=== PATIENT | female | born 1955 | race Two or more races ===

== ENCOUNTER 2022-07-05 08:00 | Day surgery (SDC) | payer MEDICARE, SELFPAY ==
[2022-07-04 07:53] VITALS: BMI 34.4
[2022-07-04 08:45] LABS: Basophils # (Auto) 0.1 Thou/mm3 (0.0-0.2); Basophils % (Auto) 1 % (0-2.5); Eosinophils # (Auto) 0.2 Thou/mm3 (0.0-0.5); Eosinophils % (Auto) 3 % (0-10); Hemoglobin 12.5 g/dL (12.0-16.0); Immature Granulocytes % (Auto) 0 % (0-0); Immature Granulocytes Auto 0.01 Thou/mm3 (0.00-0.00); Lymphocytes # (Auto) 1.6 Thou/mm3 (1.0-4.8); Lymphocytes % (Auto) 26 % (10-50); Mean Corpuscular HGB Conc 32.9 g/dl (31.0-37.0); Mean Corpuscular Hemoglobin 26.9 pg (25.0-35.0); Mean Corpuscular Volume 82 fL (80-100); Monocytes # (Auto) 0.4 Thou/mm3 (0.0-0.8); Monocytes % (Auto) 7 % (0-12); Neutrophils # (Auto) 3.8 Thou/mm3 (1.8-7.7); Neutrophils % (Auto) 63 % (37-80); Nucleated Red Blood Cell % 0 /100 WBC (0); Platelet Count 105 Thou/mm3 (140-440); RDW Standard Deviation 41.1 fL (36.4-46.3); Red Blood Count 4.64 Miln/mm3 (4.00-5.20)
[2022-07-04 09:00] LABS: COVID-19 (In-House Test) RNA Presumptive Negative (Negative)
[2022-07-04 09:01] LABS: Alanine Aminotransferase 20 U/L (10-49); Albumin, Serum 4.5 gm/dL (3.4-4.8); Albumin/Globulin Ratio 1.4 (1.2-2.2); Alkaline Phosphatase 83 U/L (46-116); Anion Gap 7 (7-16); Aspartate Amino Transferase 18 U/L (0-34); BUN/Creatinine Ratio 18 Ratio (12-20); Bilirubin,Total 0.7 mg/dL (0.3-1.2); Blood Urea Nitrogen 18 mg/dL (9-23); Calcium 9.6 mg/dL (8.3-10.6); Calcium (Corrected) 9.6 mg/dL (8.5-10.1); Carbon Dioxide 25.5 mMol/L (20.0-31.0); Chloride 106 mMol/L (98-107); Estimated Creatinine Clearance 65.3 mL/min (>60); Globulin 3.3 gm/dL (2.3-3.5); Glucose 193 mg/dL (74-106); Osmolality,Calculated 282 (275-295); Potassium 4.6 mMol/L (3.4-5.1); Sodium 138 mMol/L (136-145); Total Protein 7.8 gm/dL (5.7-8.2); eGFR > 60 See Note
[2022-07-04 09:02] LABS: Partial Thromboplastin Time 26.2 Seconds (22.0-36.0); Prothrombin Time 10.4 Seconds (9.0-12.2)
[2022-07-04 09:05] LABS: T4 (Thyroxine) 11.8 mcg/dL (4.5-10.9); Thyroid Stimulating Hormone 3.53 uIU/mL (0.55-4.78)
--- NOTE | 2022-07-04 14:11 | EKG_ITS ---
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
[2022-07-05] VITALS (17 sets, daily range): BP systolic 119–183; BP diastolic 59–96; PULSE 16–88; RESP 13–20; TEMP 36–36.9; O2SAT 92–100; BMI 34.2
[2022-07-05] MEDS: PREGABALIN 75 MG CAPSULE PO (08:17)
[2022-07-05] MEDS: ACETAMINOPHEN 500 MG TABLET 1000 MG PO ×2 (08:17→17:28)
[2022-07-05] MEDS: CELECOXIB 100 MG CAPSULE 200 MG PO (08:17)
--- NOTE | 2022-07-05 13:35 | SUR.PHASEI ---
1335: Pt. AAOx4, no complaint of pain or nausea, vitals stable, breathing unlabored, pt. has cap refill ledd than three seconds to bilateral feet, palpable pulses to dorsalis pedis bilaterally, dressing to right leg CDI, no active bleed noted, report received by Candis EMANUEL and Angeli ESCOBAR.
--- NOTE | 2022-07-05 13:46 | XR_ITS ---
Right knee: 2 views Indication: Postoperative. June, at 1:57 PM. There is an right knee arthroplasty. The proximal and metallic components are well aligned. Post operative soft tissue changes. Conclusion: Status post knee arthroplasty. The proximal and distal metallic components are well aligned.
--- NOTE | 2022-07-05 15:10 | SUR.PHASEII ---
1510:Gave report to Francisco EMANUEL.
--- NOTE | 2022-07-05 15:50 | SUR.PHASEII ---
1550: pt. AAOx4, no complaint of pain or nausea, vitals stable, breathing unlabored, pt. has cap refill less than three seconds to bilateral feet, palpable pulses to dorsalis pedis bilaterally, dressing to right leg CDI, no active bleed noted, sensations at L1 prior to transfer, Gave report to Francisco RN, family aware of transfer to room 357.
--- NOTE | 2022-07-05 16:01 | ESOP_ITS ---
Date of Procedure 07/05/22 Pre Op Diagnosis right knee osteoarthritis Post Op Diagnosis right knee osteoarthritis Procedure right total knee replacement Findings full thickness cartilage loss and osteophytes Procedure Description Indication: The patient is a 67 year old female who has a long history of right knee pain. X-rays show degenerative arthritis involving the knee. Over the past several years the patient has had increasing pain, progressive limitation in function. He has failed conservative measures including activity modification, physical therapy, injections, anti-inflammatories, and assistive devices. After a lengthy discussion of the risks and benefits, the patient presents now for total knee replacement. The nature and purpose of the total knee replacement, alternative method(s) of treatment, the material risks involved, and the possibility of complications were fully explained to the patient. The patient was told the most common risks and complications associated with a total knee replacement include, but are not limited to blood clots in the leg, fatal pulmonary embolism, dislocation of the prosthesis, intraoperative and postoperative fractures of the femur or tibia, infection, failure of the prosthesis or grafting materials, complications from anesthesia, reactions to blood transfusions, postoperative leg length inequality, instability of the knee replacement, nerve damage or injury, vascular injury, delayed wound healing, infections, other injury or even . In addition, there are risks associated with anesthesia given during this operation, temporary or permanent numbness on the skin lateral to the incision can be a complication unique to total knee surgery, and kneeling can be painful after knee replacement surgery. Also, the patient was told that after undergoing a total knee replacement there may still be pain or disability. The patient was informed that the success of this operation in part depends upon the mechanical devices which are going to be implanted and that these devices can fail or malfunction, and may need to be repaired or replaced and there are no guarantees as to the longevity of this device or its part and that it or its parts could fail prematurely. Finally, the patient was asked to follow completely and fully with all advice and recommended treatments, and that recovery and ultimate outcome are affected by their compliance with recommended treatment. Surgical technique: Patient was marked and consented in the pre-operative area. The patient was brou ght to the operating room and placed on the operating table in a supine position. Prior to positioning, a timeout procedure was performed between the surgeon, the anesthesiologist, and the nursing staff where the patient and the operative side were identified and confirmed. After adequate general anesthetic was obtained, the right lower extremity was prepped and draped in the usual sterile fashion. A weight based dose of Cefazolin were administered within 1 hour prior to incision. The extremity was exsanguinated with an esmarch badge and tourniquet inflated to 250mmHg. A midline incision was made. A median parapatellar arthrotomy was made. The patella was subluxed laterally. A drill hole was made in the intramedullary canal to accept the intramedullary alignment device. The distal femur was cut for 5 degrees valgus made based on preoperative templating. The rotational alignment of the planned femoral component was confirmed by comparing the anterior femoral cut to the AP [place] (Gautam's line) and the trans-epicondylar axis. The femur was sized to a size 4, and the corresponding cutting block was pinned to the distal femur. Posterior condylar, posterior chamfer, anterior condylar and anterior chamfer cuts were made being careful to avoid injury to the medial and lateral collateral ligaments. Next, attention was turned to the tibia. The extramedullary alignment guide was placed. A bone sparing perpendicular cut to the mechanical axis of tibia was performed. The tibia was sized to a size 4 and the corresponding cutting block was pinned to the proximal tibia and lug hole was drilled and the keel punch impacted. A laminar glacing machine tender was used to open up the back of the knee and remove posterior osteophytes in posterior capsule. A trial reduction was performed with a size 4 femoral component and a size 4 keeled tibial component. The patella was prepared for a size 31 button. The patella tracked centrally, and no lateral retinacular release was necessary. The trial implants were removed. The cut bone surfaces were lavaged. A size 4 right femoral component, a size 4 keeled tibial component, and a size 31 cementless Patellar button were impacted iinto position. The knee was brought out to full extension with a trial liner in a place while the cement hardened. When the cement hardened, excess cement was removed with a curved elevator. The final [4x10] mm cruciate-substituting articular insert was impacted into the tibial tray. The knee was brought out to full extension, flexed up to 120 degrees. It was stable to varus and valgus stress and appropriately balanced in flexion and extension. The wounds were copiously irrigated following deflation of tourniquet. The medial retinaculum was reapproximated with #1 vicryl and quill. The subcutaneous tissues were closed with 0 and 2-0 interrupted Vicryl. The skin was closed with 3-0 Monofilament V loc suture. A sterile dressing was applied. The patient was transferred to a bed and brought to recovery in stable condition. The patient tolerated the procedure well. There were no intraoperative complications. Sponge and needle counts were correct times 2. As the attending surgeon, I attest I was present and performed the entire operation. Grafts/Implants Size 4 CR Femur Size 4 tibia 10 mm poly 33 patella All maria del carmen tritanium cementless Anesthesia spinal Implants maria del carmen tritanium Pathology / specimen None Estimated Blood Loss 150 Condition Stable Disposition observation Surgeon Cody Alonso MD Surgical Staff Operation Date: 07/05/22 10:15 Case Staff CHIEF OPERATING OFFICER: Rubén Kay RN First Assistant: Tricia Mullins
--- NOTE | 2022-07-05 16:22 | PC.NURSE ---
Dr Alonso ordered to discontinue the regular diet and start consistent carb diet at dinner due to patient having history of diabetes, the orders were received and repeated back to the provider.
--- NOTE | 2022-07-05 16:39 | PC.NURSE ---
Informed Pharmacist Yossi to discontinue fentanyl 25 mcg IV q1h due to patient being on a med surg floor and it is not appropriate to be given on the med surg floor, MD Sy stated she would look into the order, Charge Nurse Gracy and Aligner Preston made aware of situation.
[2022-07-05] MEDS: amLODIPine BESYLATE 5 MG TABLET PO (17:28)
[2022-07-05] MEDS: SODIUM CHLORIDE 0.9% 1000 ML 1,000 ML 125 ML IV (17:28)
[2022-07-05] MEDS: metFORMIN 500 MG TABLET PO (17:28)
--- NOTE | 2022-07-05 18:19 | PC.PT ---
Patient was checked at 1730 and 1815. Patient still has no sensation below the knee. Unable to perform PT evaluation today. Will try tomorrow. RN made aware.
[2022-07-05] MEDS: oxyCODONE HCL 5 MG IR TAB 10 MG PO (19:52)
[2022-07-05] MEDS: ASPIRIN EC 81 MG TABEC PO (20:32)
[2022-07-05] MEDS: ceFAZolin/D5W 2 GM IV 2 GM/100 ML BAG IV (23:36)
[2022-07-06] MEDS: ACETAMINOPHEN 500 MG TABLET 1000 MG PO ×3 (01:02→11:53)
[2022-07-06] MEDS: oxyCODONE HCL 5 MG IR TAB PO (01:02)
[2022-07-06] MEDS: SODIUM CHLORIDE 0.9% 1000 ML 1,000 ML 125 ML IV (01:30)
[2022-07-06 04:00] VITALS: BP 155/52; PULSE 77; RESP 18; TEMP 35.7; O2SAT 96
--- NOTE | 2022-07-06 05:02 | PC.NURSE ---
2130- patient able to get out bed to bedside commode.
[2022-07-06] MEDS: LEVOTHYROXINE SODIUM 100 MCG TABLET PO (05:40)
[2022-07-06] MEDS: ceFAZolin/D5W 2 GM IV 2 GM/100 ML BAG IV (05:40)
[2022-07-06 06:05] LABS: Basophils % (Auto) 0 % (0-2.5); Eosinophils % (Auto) 0 % (0-10); Hematocrit 31.3 % (36.0-46.0); Hemoglobin 10.1 g/dL (12.0-16.0); Immature Granulocytes % (Auto) 0 % (0-0); Immature Granulocytes Auto 0.02 Thou/mm3 (0.00-0.00); Lymphocytes # (Auto) 0.5 Thou/mm3 (1.0-4.8); Lymphocytes % (Auto) 11 % (10-50); Mean Corpuscular HGB Conc 32.3 g/dl (31.0-37.0); Mean Corpuscular Hemoglobin 26.7 pg (25.0-35.0); Mean Corpuscular Volume 83 fL (80-100); Monocytes # (Auto) 0.4 Thou/mm3 (0.0-0.8); Monocytes % (Auto) 9 % (0-12); Neutrophils # (Auto) 3.6 Thou/mm3 (1.8-7.7); Neutrophils % (Auto) 79 % (37-80); Nucleated Red Blood Cell % 0 /100 WBC (0); Red Blood Count 3.78 Miln/mm3 (4.00-5.20); White Blood Count 4.5 Thou/mm3 (3.6-11.0)
[2022-07-06] MEDS: oxyCODONE HCL 5 MG IR TAB 10 MG PO ×2 (06:10→12:46)
[2022-07-06 06:12] LABS: Platelet Count 77 Thou/mm3 (140-440)
[2022-07-06 06:39] LABS: Anion Gap 10 (7-16); BUN/Creatinine Ratio 22 Ratio (12-20); Blood Urea Nitrogen 22 mg/dL (9-23); Calcium 9.1 mg/dL (8.3-10.6); Carbon Dioxide 22.1 mMol/L (20.0-31.0); Chloride 107 mMol/L (98-107); Glucose 190 mg/dL (74-106); Osmolality,Calculated 285 (275-295); Sodium 139 mMol/L (136-145); eGFR > 60 See Note
[2022-07-06 07:58] LABS: Slide Review Platelets confirmed
[2022-07-06 08:00] VITALS: BP 157/71; PULSE 73; RESP 17; TEMP 36.6; O2SAT 97
[2022-07-06] MEDS: CLOPIDOGREL BISULFATE 75 MG TABLET PO (09:04)
[2022-07-06 09:05] VITALS: BP 150/70; PULSE 70
[2022-07-06] MEDS: ASPIRIN EC 81 MG TABEC PO (09:05)
[2022-07-06] MEDS: metFORMIN 500 MG TABLET PO (09:05)
[2022-07-06] MEDS: ATORVASTATIN CALCIUM 20 MG TABLET PO (09:05)
[2022-07-06] MEDS: METOPROLOL SUCCINATE XL 25 MG TABCR PO (09:05)
[2022-07-06] MEDS: sitaGLIPtin PHOSPHATE 50 MG TABLET 100 MG PO (09:05)
[2022-07-06 09:06] VITALS: BP 150/70; PULSE 70
[2022-07-06] MEDS: PANTOPRAZOLE INJ 40 MG VIAL IV (09:06)
[2022-07-06] MEDS: amLODIPine BESYLATE 5 MG TABLET PO (09:06)
[2022-07-06 11:34] VITALS: BMI 13.0
[2022-07-06 12:00] VITALS: BP 141/78; PULSE 75; RESP 17; TEMP 36.5; O2SAT 96
--- NOTE | 2022-07-06 13:55 | PC.NURSE ---
patient discharged at 1355, discharge instructions given to patient, answered all questions. patient alert and orientated to person place time and situation. IV removed, catather intact, tape pressure and gauze applied for 5 minutes.
== END 2022-07-06 14:00 | disposition home health service (06) ==
LOC: S2EX 13:56 → S3NX 07-06 09:36
PROVIDERS: Anesthesiology; PCP Family Medicine; Referring Provider Orthopaedic Surgery Adult Reconstructive Orthopaedic Surgery; Visit Provider Orthopaedic Surgery Adult Reconstructive Orthopaedic Surgery
PROC: (CPT 27447; principal; 2022-07-05 10:15)
DX: M17.11 Unilateral primary osteoarthritis, right knee (principal); Z20.822 Contact with and (suspected) exposure to COVID-19; Z01.812 Encounter for preprocedural laboratory examination; Z01.810 Encounter for preprocedural cardiovascular examination; E11.9 Type 2 diabetes mellitus without complications; E78.5 Hyperlipidemia, unspecified; I10 Essential (primary) hypertension; Z96.652 Presence of left artificial knee joint; M25.761 Osteophyte, right knee
CPT/HCPCS: 27447; 36415; 73560; 80048; 80053; 84436; 84443; 85025; 85610; 85730; 87635; 93005; 97162; A4217; C1776; C9803; J0171; J0689; J1885; J2250; J2704; J2795; J3010; J3490; J7030; L1832; S0164; A9270; C9113; U0002

== ENCOUNTER 2024-02-12 13:19 | Outpatient (AMB) | payer MEDICARE, SELFPAY ==
[2024-02-12 13:48] VITALS: BP 141/76; PULSE 71; RESP 18; TEMP 36.4; O2SAT 97; BMI 34.1
--- NOTE | 2024-02-12 13:48 | PD.ORTHCLVIS ---
Vital signs 02/12/24 13:48 Height 1.7 m Height Method Stated Weight 98.6 kg Weight Measurement Method Standing Scale BMI 34.1 BP 141/76 H Blood Pressure Source Automatic Cuff Blood Pressure Location Right Upper Arm Position Sitting Respiration 18 Pulse 71 Pulse Source Monitor Temp 97.6 F Temp Source Temporal Artery Scan Pulse Oximetry (%) 97 Oxygen Delivery Method Room Air Med/Allergies Allergies & Medications Allergies lactase [From [employer]] Allergy (Intermediate, Verified 02/12/24 13:49) Diarrhea Medication Reconciliation atorvastatin 40 mg tablet 20 tab PO QDAY 11/14/17 [History Confirmed 02/12/24] levothyroxine 100 mcg capsule 100 mcg PO QDAY 11/14/17 [History Confirmed 02/12/24] lisinopril 20 mg tablet 30 mg PO QDAY 11/14/17 [History Confirmed 02/12/24] sitagliptin phosphate 50 mg-metformin 1,000 mg tablet (Janumet) 1 tab PO BID 11/14/17 [History Confirmed 02/12/24] amlodipine 5 mg tablet 5 mg PO QDAY #30 tabs 08/06/20 [Rx Confirmed 02/12/24] clopidogrel 75 mg tablet (Plavix) 75 mg PO QDAY #30 tabs 08/06/20 [Rx Confirmed 02/12/24] empagliflozin 25 mg tablet (Jardiance) 25 mg PO QAM 08/06/20 [History Confirmed 02/12/24] metoprolol succinate 25 mg capsule sprinkle, ext. release 24 hr 25 mg PO QDAY 07/04/22 [History Confirmed 02/12/24] aspirin 81 mg chewable tablet 81 mg PO QDAY #30 tabs 01/21/24 [Rx Confirmed 02/12/24] loperamide 2 mg tablet 2 mg PO PRN PRN Diarrhea 01/21/24 [History Confirmed 02/12/24] trazodone 50 mg tablet 50 mg PO QDAY 01/21/24 [History Confirmed 02/12/24] Subjective Visit Visit for: follow up visit Immunization / Flu Flu Vaccine in the Last 12 Months: No Flu Vaccine Exclusion Criteria: No Exclusion Criteria History of Present Illness Chief complaint: PRE-OPT Marguerite is a pleasant 68-year-old female who presents today for evaluation of her left knee. She is status post a Right total knee replacement 1 year ago and is doing well. On her left knee she reports significant pain. She was told before that it was neuropathy. I will get new x-rays of her both her knees and her back. It does appear to be radicular in nature. She is seeing a pain management doctor. The patient reports that her left knee pain hurts with stairs and is primarily in the front of her knee. She has failed conservative treatment including physical therapy in the past. She had recent stents placed in her heart. This was done 3 weeks ago. This likely delay her surgery. 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 because I am not sure he would clear her for surgery just yet Personal History Red flag PMH: other (specify) (HEART STENTS PLACED ON 01/20) Pain Pain level (0-10): 5 Pain duration: COMES AND GOES Pain location: inside (medial), outside (lateral), anterior and posterior Pain quality: sharp, dull and aching Pain timing: increases with activity Associated signs & symptoms: stiffness Ambulatory data Ambulatory device: cane Treatments Improvement with previous injections: No Improvement with PT: No Improvement with NSAIDS: n/a Review of Systems Review of Systems: All systems negative unless otherwise noted in HPI. Exam Exam Patient is in no acute distress and is cooperative with the examination today. Patient has a normal mood and affect. Breathing is nonlabored. In no respiratory distress. Bilateral extremities were evaluated and demonstrates sensation intact to light touch. Palpable pedal pulses are present. No significant edema is present. Bilateral incisions are clean dry intact. The knee feels stable to varus valgus stress elected translation for both knees. The incisions of healed to be healed. There is a lot of pain on the anterior aspect of her left knee With significant osteophytes Assessment and Plan Problem List (1) History of total bilateral knee replacement: Status: Acute Plan: Patient is a pleasant 68-year-old female who is status post right total knee replacement. Her left knee which was done by Dr. George actually hurts more. We discussed nonoperative treatment options. The left knee demonstrates an undersurface patella with significant patellar osteophytes. She she is significant anterior knee pain and we thus recommend patellar resurfacing is reasonable option. We discussed the risk benefits of surgery including infection, medical complications, persistent pain, and fracture. We are waiting to see when she can get surgery as she had recent stents placed (2) Bilateral knee pain: Status: Acute Advanced Care Planning Discussion Advance care planning discussed with:: patient Office Procedures GNS Level of Care Nursing/Assessment Patient Status: Established Patient Nursing Assessment/Reassesment: Medication Reconciliation, Update PMH in EMR and Vital Signs Coordination of Care: Complex Care and Chronic Disease 1-5, Education Complex Pt/Fam, Consent,records obtained, informed consent, 1 Ins Authorization, Results/Orders obtained and Staff clarify orders Established Patient Charge Established Patient Point Assignment: 110 Established Patient Point Charge: EP Level 3 (80-115) Past Medical History Past Medical History Have you ever been diagnosed with any of the following: Neurological Problems Cerebrovascular Accident (CVA): Yes Seizures: No Cardiology Problems Cardiac Arrhythmia: No Atrial Fibrillation: No Angina: Yes Coronary Artery Disease: Yes Hypercholesterolemia: Yes Congestive Heart Failure: No Valvular Heart Disease: No Hypertension: Yes Respiratory Problems Chronic Obstructive Pulmonary Disease (COPD): No Asthma: No Bronchitis: No Sleep Apnea: No Stomache/Intestinal Problems Irritable Bowel: Yes Genital/Urinary Problems Renal Disease: No Kidney Stones: No Reproductive Problems Previous Pregnancies: Yes (x3) Musculoskeletal Problems Arthritis: Yes (general) Gout: No Fractures: No Head,Eye,Nose,Throat Problems Cataracts: Yes (BILATERAL) Endocrine Problems Diabetes Mellitus Type 1: No Diabetes Mellitus Type 2: Yes Hyperthyroidism: Yes Blood Problems Anemia: Yes Psychologic Problems Depression: No Anxiety: No Other Problems Hospitalization: Yes (stroke) Falls: Yes Blood Transfusions: No (na) Anesthesia Reactions: No (na) MRSA: No Cancer: No Surgical History Pacemaker: Yes Additional Surgical History: HEART STENTS PLACED 01/21/24, COLONOSCOPY 01/07/24
== END 2024-02-12 14:19 | disposition home or self-care (01) ==
LOC: HODSRG 13:19
PROVIDERS: PCP Family Medicine; Referring Provider Family Medicine; Supervising Provider Orthopaedic Surgery Adult Reconstructive Orthopaedic Surgery; Visit Provider Orthopaedic Surgery Adult Reconstructive Orthopaedic Surgery
DX: M25.562 Pain in left knee (principal); M25.561 Pain in right knee; Z96.653 Presence of artificial knee joint, bilateral; I10 Essential (primary) hypertension; E78.00 Pure hypercholesterolemia, unspecified; I25.10 Atherosclerotic heart disease of native coronary artery without angina pectoris; E11.9 Type 2 diabetes mellitus without complications; Z86.73 Personal history of transient ischemic attack (TIA), and cerebral infarction without residual deficits; Z95.5 Presence of coronary angioplasty implant and graft
CPT/HCPCS: 99213; G0463

== ENCOUNTER 2024-10-02 13:23 | Outpatient (AMB) | payer MEDICARE, SELFPAY ==
[2024-10-02 13:51] VITALS: BP 158/66; PULSE 77; RESP 18; TEMP 36.6; O2SAT 77; BMI 34.6
--- NOTE | 2024-10-02 13:51 | ORTHONT_ITS ---
Vital signs 10/02/24 13:51 Height 1.7 m Height Method Stated Weight 100.045 kg Weight Measurement Method Standing Scale BMI 34.6 BP 158/66 H Blood Pressure Source Automatic Cuff Blood Pressure Location Left Upper Arm Position Sitting Respiration 18 Pulse 77 Pulse Source Monitor Temp 97.8 F Temp Source Temporal Artery Scan Pulse Oximetry (%) 77 L Oxygen Delivery Method Room Air Med/Allergies Allergies & Medications Allergies lactase (From [employer]) Allergy (Intermediate, Verified 10/02/24 13:53) Diarrhea Medication Reconciliation atorvastatin 40 mg tablet 20 tab PO QDAY 11/14/17 [History Confirmed 10/02/24] levothyroxine 100 mcg capsule 100 mcg PO QDAY 11/14/17 [History Confirmed 10/02/24] lisinopril 20 mg tablet 30 mg PO QDAY 11/14/17 [History Confirmed 10/02/24] sitagliptin phosphate 50 mg-metformin 1,000 mg tablet (Janumet) 1 tab PO BID 11/14/17 [History Confirmed 10/02/24] amlodipine 5 mg tablet 5 mg PO QDAY #30 tabs 08/06/20 [Rx Confirmed 10/02/24] clopidogrel 75 mg tablet (Plavix) 75 mg PO QDAY #30 tabs 08/06/20 [Rx Confirmed 10/02/24] empagliflozin 25 mg tablet (Jardiance) 25 mg PO QAM 08/06/20 [History Confirmed 10/02/24] metoprolol succinate 25 mg capsule sprinkle, ext. release 24 hr 25 mg PO QDAY 07/04/22 [History Confirmed 10/02/24] aspirin 81 mg chewable tablet 81 mg PO QDAY #30 tabs 01/21/24 [Rx Confirmed 10/02/24] loperamide 2 mg tablet 2 mg PO PRN PRN Diarrhea 01/21/24 [History Confirmed 10/02/24] trazodone 50 mg tablet 50 mg PO QDAY 01/21/24 [History Confirmed 10/02/24] Exam Exam Patient is in no acute distress and is cooperative with the examination today. Patient has a normal mood and affect. Breathing is nonlabored. In no respiratory distress. Bilateral extremities were evaluated and demonstrates sensation intact to light touch. Palpable pedal pulses are present. No significant edema is present. Bilateral incisions are clean dry intact. The knee feels stable to varus valgus stress elected translation for both knees. The incisions of healed to be healed. 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 Her left knee which was done by Dr. George actually hurts more. We discussed nonoperative treatment options. The left knee demonstrates an undersurface patella with significant patellar osteophytes. She she is significant anterior knee pain and we thus recommend patellar resurfacing is reasonable option. We discussed the risk benefits of surgery including infection, medical complications, persistent pain, and fracture. Recently had stents placed. She is on Plavix. She will likely need to discontinue this before proceeding (2) Bilateral knee pain: Status: Acute Advanced Care Planning Discussion Advance care planning discussed with:: patient Office Procedures GNS Level of Care Nursing/Assessment Patient Status: Established Patient Nursing Assessment/Reassesment: Medication Reconciliation, Update PMH in EMR and Vital Signs Coordination of Care: Complex Care and Chronic Disease 1-5, Education Complex Pt/Fam, Consent,records obtained, informed consent, Education Simp Pt/Fam, Lab and Imaging orders and Staff clarify orders Established Patient Charge Established Patient Point Assignment: 120 Established Patient Point Charge: EP Level 4 (120-155) MA Intake Visit Data Collection New Patient or Established: Established Patient (seen at [facility] within 3 years) Reason for Visit:: REQUEST LEFT SX Seen by Clinical Staff ONLY (RN/MA): No 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: No Primary Care Provider: DR DARNELL PCP or OBGYN visit in last 3 months: Yes Hx Now: No Do You Feel Safe at Home: Yes Authorities Contacted: N/A Questionairres Past Medical History Past Medical History Have you ever been diagnosed with any of the following: Neurological Problems Cerebrovascular Accident (CVA): Yes Transient Ischemic Attacks (TIA): No Dementia: No Alzheimer's Disease: No Parkinson's Disease: No Brain Tumor: No Meningitis: No Seizures: No Epilepsy: No Multiple Sclerosis: No Cerebral Palsy: No Amyotrophic Lateral Sclerosis (ALS/Samara Gehrig's): No Guillain-[place] Syndrome: No Spina Bifida: No Paralysis: No Peripheral Neuropathy: No Colon's Palsy: No Subdural Hematoma: No Migraine: No Head Trauma: No Spinal Cord Injury: No Traumatic Brain Injury: No Cardiology Problems Myocardial Infarction: No Cardiac Arrhythmia: No Atrial Fibrillation: No Angina: Yes Heart Murmur: No Coronary Artery Disease: Yes Atherosclerotic Heart Disease: No Peripheral Vascular Disease: No Hypercholesterolemia: Yes Aneurysm: No Congestive Heart Failure: No Congenital Heart Disease: No Valvular Heart Disease: No Rheumatic Fever: No Cardiomyopathy: No Edema: No Pericarditis: No Cellulitis: No Deep Vein Thrombosis: No Hypertension: Yes Hypotension: No Varicose Veins: No Respiratory Problems Chronic Obstructive Pulmonary Disease (COPD): No Asthma: No Bronchitis: No Emphysema: No Pneumonia: No Pulmonary Fibrosis: No Tuberculosis: No Pulmonary Embolism: No Pulmonary Edema: No Sleep Apnea: No CPAP Dependent: No Respiratory Aspiration: No Dyspnea: No Orthopnea: No Hx Cough: No Cough: No Wheezing: No Chest Deformities: No Smoking: No Smoking Cessation Counseling: No Smoking Exposure: No Tobacco Use: No Clubbing: No Exposure to Respiratory Irritants: No Intubation: No Stomache/Intestinal Problems Liver Cancer: No Hepatitis: No Cirrhosis: No Pancreatic Cancer: No Pancreatitis: No Celiac Disease: No Gall Bladder Disease: No Gastrointestinal Bleed: No Esophageal Varices: No Caceres's Esophagus: No Colitis: No Ulcerative Colitis: No Diverticulitis: No Diverticulosis: No Ulcer: No Colorectal Cancer: No Irritable Bowel: Yes Crohn's Disease: No Obstructive Bowel: No Hiatal Hernia: No Hemorrhoids: No Gastroesophageal Reflux Disease: No Polyps: No Obesity: No Genital/Urinary Problems Chronic Kidney Disease: No Renal Disease: No Kidney Stones: No Polycystic Kidney Disease: No Neurogenic Bladder: No Inguinal Hernia: No Dialysis: No Reproductive Problems Breast Cancer: No Endometriosis: No Fibroids: No Genital Herpes: No Gonorrhea: No Pelvic Inflammatory Disease: No Polycystic Ovarian Syndrome: No Previous Pregnancies: Yes (x3) Syphilis: No Uterine Prolapse: No Musculoskeletal Problems Muscular Dystrophy: No Myasthenia Gravis: No Marfan's Syndrome: No Bone Cancer: No Arthritis: Yes (general) Rheumatoid Arthritis: No Osteoporosis: No Degenerative Disk Disease: No Gout: No Scoliosis: No Carpal Tunnel Syndrome: No Fibromyalgia: No Fractures: No Degenerative Joint Disease: No Osteomyelitis: No Poliovirus: No Head,Eye,Nose,Throat Problems Cataracts: Yes (BILATERAL) Glaucoma: No Blind: No Retinal Detachment: No Macular Degeneration: No Chronic Ear Infections: No Deafness: No Eye Prosthesis: No Endocrine Problems Diabetes Mellitus Type 1: No Diabetes Mellitus Type 2: Yes Hypoglycemia: No [place]'s Syndrome: No Chris's Disease: No Hyperthyroidism: Yes Hypothyroidism: No Thyroid Cancer: No Parathyroid Disease: No Pituitary Disease: No Systemic Lupus Erythematosus: No Syndrome of Inappropriate Antidiuretic Hormone: No Adrenal Disease: No Graves' Disease: No Blood Problems Anemia: Yes Leukemia: No Hemophilia: No Thalassemia: No Sickle Cell Disease: No Clotting Problems: No Psychologic Problems Schizophrenia: No Recreational Drug Use: No Bipolar Disorder: No Depression: No Anxiety: No Behavior Problems: No Self-Mutilation: No Attention Deficit Disorder: No Attention Deficit Hyperactivity Disorder: No Depression: No Post Traumatic Stress Disorder: No Eating Disorder: No Other Problems Hospitalization: Yes (stroke) Autoimmune Disease: No Down Syndrome: No Autism: No Developmental Delay: No Cosmetic Surgery: No Shingles: No Falls: Yes Blood Transfusions: No (na) Blood Transfusion Reaction: No Anesthesia Reactions: No (na) Organ Transplant: No Chemotherapy: No Radiation Therapy: No Hyperbaric Therapy: No MRSA: No VRSA: No Vancomycin-Resistant Enterococci: No Human Immunodeficiency Virus (HIV): No Chicken Pox: No Measles: No Mumps: No Rubella ([place] Measles): No Pertussis: No Klebsiella Pneumoniae Carbapenemase Producing Bacteria: No Clostridium Difficile: No Hepatitis A: No Hepatitis B: No Hepatitis C: No Communicable Disease: No Cancer: No Cervical Cancer: No Lung Cancer: No Ovarian Cancer: No Surgical History Angioplasty: No Appendectomy: No Bariatric Surgery: No Breast Surgery: No Cancer Surgery: No Carotid Endarterectomy: No Cholecystectomy: No Colectomy: No Colostomy: No Coronary Artery Bypass Graft: No Valve Replacement: No Herniorrhaphy: No Total Hip Replacement: No Total Knee Replacement: No Hysterectomy: No Pacemaker: Yes Sinus Surgery: No Splenectomy: No TAHBSO-Total Abdominal Hysterectomy: No Thyroidectomy: No Ureter Stent: No Additional Surgical History: HEART STENTS PLACED 01/21/24, COLONOSCOPY 01/07/24 Subjective Visit Visit for: follow up visit and knee Immunization / Flu Flu Vaccine in the Last 12 Months: No Flu Vaccine Exclusion Criteria: Refused by Patient and No Exclusion Criteria History of Present Illness Chief complaint: REQUEST LEFT SX Patient is a pleasant 69-year-old female with a left total knee replacement done by Dr. George. She was found to have an undersurface patella and significant patellar arthritis. We discussed nonoperative and operative options. At this point tachycardia conservative treatment. All her pain is with stairs and in the anterior aspect of her knee. She recently had a stent placed. This was done 8 months ago Personal History BMI Counceling provided: Yes Pain Pain level (0-10): 5 Pain location: anterior Pain quality: sharp, dull and aching Ambulatory data Ambulatory device: cane Treatments Improvement with previous injections: No Improvement with PT: No Improvement with NSAIDS: no Review of Systems Review of Systems: All systems negative unless otherwise noted in HPI.
== END 2024-10-02 14:08 | disposition home or self-care (01) ==
LOC: HODSRG 13:23
PROVIDERS: PCP Family Medicine; Referring Provider Family Medicine; Supervising Provider Orthopaedic Surgery Adult Reconstructive Orthopaedic Surgery; Visit Provider Orthopaedic Surgery Adult Reconstructive Orthopaedic Surgery
DX: Z96.653 Presence of artificial knee joint, bilateral (principal); M25.561 Pain in right knee; M25.562 Pain in left knee; I10 Essential (primary) hypertension; E78.00 Pure hypercholesterolemia, unspecified; I25.10 Atherosclerotic heart disease of native coronary artery without angina pectoris; Z86.73 Personal history of transient ischemic attack (TIA), and cerebral infarction without residual deficits
CPT/HCPCS: 99214; G0463

== ENCOUNTER 2024-11-11 09:02 | Outpatient (AMB) | payer MEDICARE, SELFPAY ==
--- NOTE | 2024-11-11 09:09 | PD.ORTHCLVIS ---
Vital signs 11/11/24 09:13 Height 1.7 m Height Method Stated Weight 99.365 kg Weight Measurement Method Standing Scale BMI 34.4 BP 106/65 Blood Pressure Source Automatic Cuff Blood Pressure Location Left Upper Arm Position Sitting Respiration 16 Pulse 65 Pulse Source Monitor Temp 97.0 F Temp Source Temporal Artery Scan Pulse Oximetry (%) 92 L Oxygen Delivery Method Room Air Med/Allergies Allergies & Medications Allergies lactase (From [employer]) Allergy (Intermediate, Verified 11/11/24 09:18) Diarrhea Medication Reconciliation atorvastatin 40 mg tablet 20 tab PO QDAY 11/14/17 [History Confirmed 11/11/24] levothyroxine 100 mcg capsule 100 mcg PO QDAY 11/14/17 [History Confirmed 11/11/24] lisinopril 20 mg tablet 30 mg PO QDAY 11/14/17 [History Confirmed 11/11/24] sitagliptin phosphate 50 mg-metformin 1,000 mg tablet (Janumet) 1 tab PO BID 11/14/17 [History Confirmed 11/11/24] amlodipine 5 mg tablet 5 mg PO QDAY #30 tabs 08/06/20 [Rx Confirmed 11/11/24] clopidogrel 75 mg tablet (Plavix) 75 mg PO QDAY #30 tabs 08/06/20 [Rx Confirmed 11/11/24] empagliflozin 25 mg tablet (Jardiance) 25 mg PO QAM 08/06/20 [History Confirmed 11/11/24] metoprolol succinate 25 mg capsule sprinkle, ext. release 24 hr 25 mg PO QDAY 07/04/22 [History Confirmed 11/11/24] aspirin 81 mg chewable tablet 81 mg PO QDAY #30 tabs 01/21/24 [Rx Confirmed 11/11/24] loperamide 2 mg tablet 2 mg PO PRN PRN Diarrhea 01/21/24 [History Confirmed 11/11/24] trazodone 50 mg tablet 50 mg PO QDAY 01/21/24 [History Confirmed 11/11/24] Exam Exam Patient is in no acute distress and is cooperative with the examination today. Patient has a normal mood and affect. Breathing is nonlabored. In no respiratory distress. Bilateral extremities were evaluated and demonstrates sensation intact to light touch. Palpable pedal pulses are present. No significant edema is present. Bilateral incisions are clean dry intact. The knee feels stable to varus valgus stress elected translation for both knees. The incisions of healed to be healed. 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 Her left knee which was done by Dr. George actually hurts more. We discussed nonoperative treatment options. The left knee demonstrates an undersurface patella with significant patellar osteophytes. She she is significant anterior knee pain and we thus recommend patellar resurfacing is reasonable option. We discussed the risk benefits of surgery including infection, medical complications, persistent pain, and fracture. Recently had stents placed. She is on Plavix. She has stopped it again (2) Bilateral knee pain: Status: Acute Advanced Care Planning Discussion Advance care planning discussed with:: patient Office Procedures GNS Level of Care Nursing/Assessment Patient Status: Established Patient Nursing Assessment/Reassesment: Medication Reconciliation, Update PMH in EMR and Vital Signs Coordination of Care: Complex Care and Chronic Disease 1-5, Education Complex Pt/Fam, Consent,records obtained, informed consent, Results/Orders obtained and Staff clarify orders Established Patient Charge Established Patient Point Assignment: 95 Established Patient Point Charge: EP Level 3 (80-115) MA Intake Visit Data Collection New Patient or Established: Established Patient (seen at [facility] within 3 years) Reason for Visit:: F/U PRE OP LEFT KNEE Seen by Clinical Staff ONLY (RN/MA): No Bacon De 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: No Primary Care Provider: DR DARNELL PCP or OBGYN visit in last 3 months: Yes Hx Now: No Do You Feel Safe at Home: Yes Authorities Contacted: N/A Questionairres Past Medical History Past Medical History Have you ever been diagnosed with any of the following: Neurological Problems Cerebrovascular Accident (CVA): Yes Transient Ischemic Attacks (TIA): No Dementia: No Alzheimer's Disease: No Parkinson's Disease: No Brain Tumor: No Meningitis: No Seizures: No Epilepsy: No Multiple Sclerosis: No Cerebral Palsy: No Amyotrophic Lateral Sclerosis (ALS/Samara Gehrig's): No Guillain-[place] Syndrome: No Spina Bifida: No Paralysis: No Peripheral Neuropathy: No Colon's Palsy: No Subdural Hematoma: No Migraine: No Head Trauma: No Spinal Cord Injury: No Traumatic Brain Injury: No Cardiology Problems Myocardial Infarction: No Cardiac Arrhythmia: No Atrial Fibrillation: No Angina: Yes Heart Murmur: No Coronary Artery Disease: Yes Atherosclerotic Heart Disease: No Peripheral Vascular Disease: No Hypercholesterolemia: Yes Aneurysm: No Congestive Heart Failure: No Congenital Heart Disease: No Valvular Heart Disease: No Rheumatic Fever: No Cardiomyopathy: No Edema: No Pericarditis: No Cellulitis: No Deep Vein Thrombosis: No Hypertension: Yes Hypotension: No Varicose Veins: No Respiratory Problems Chronic Obstructive Pulmonary Disease (COPD): No Asthma: No Bronchitis: No Emphysema: No Pneumonia: No Pulmonary Fibrosis: No Tuberculosis: No Pulmonary Embolism: No Pulmonary Edema: No Sleep Apnea: No CPAP Dependent: No Respiratory Aspiration: No Dyspnea: No Orthopnea: No Hx Cough: No Cough: No Wheezing: No Chest Deformities: No Smoking: No Smoking Cessation Counseling: No Smoking Exposure: No Tobacco Use: No Clubbing: No Exposure to Respiratory Irritants: No Intubation: No Stomache/Intestinal Problems Liver Cancer: No Hepatitis: No Cirrhosis: No Pancreatic Cancer: No Pancreatitis: No Celiac Disease: No Gall Bladder Disease: No Gastrointestinal Bleed: No Esophageal Varices: No Caceres's Esophagus: No Colitis: No Ulcerative Colitis: No Diverticulitis: No Diverticulosis: No Ulcer: No Colorectal Cancer: No Irritable Bowel: Yes Crohn's Disease: No Obstructive Bowel: No Hiatal Hernia: No Hemorrhoids: No Gastroesophageal Reflux Disease: No Polyps: No Obesity: No Genital/Urinary Problems Chronic Kidney Disease: No Renal Disease: No Kidney Stones: No Polycystic Kidney Disease: No Neurogenic Bladder: No Inguinal Hernia: No Dialysis: No Reproductive Problems Breast Cancer: No Endometriosis: No Fibroids: No Genital Herpes: No Gonorrhea: No Pelvic Inflammatory Disease: No Polycystic Ovarian Syndrome: No Previous Pregnancies: Yes (x3) Syphilis: No Uterine Prolapse: No Musculoskeletal Problems Muscular Dystrophy: No Myasthenia Gravis: No Marfan's Syndrome: No Bone Cancer: No Arthritis: Yes (general) Rheumatoid Arthritis: No Osteoporosis: No Degenerative Disk Disease: No Gout: No Scoliosis: No Carpal Tunnel Syndrome: No Fibromyalgia: No Fractures: No Degenerative Joint Disease: No Osteomyelitis: No Poliovirus: No Head,Eye,Nose,Throat Problems Cataracts: Yes (BILATERAL) Glaucoma: No Blind: No Retinal Detachment: No Macular Degeneration: No Chronic Ear Infections: No Deafness: No Eye Prosthesis: No Endocrine Problems Diabetes Mellitus Type 1: No Diabetes Mellitus Type 2: Yes Hypoglycemia: No [place]'s Syndrome: No [place]'s Disease: No Hyperthyroidism: Yes Hypothyroidism: No Thyroid Cancer: No Parathyroid Disease: No Pituitary Disease: No Systemic Lupus Erythematosus: No Syndrome of Inappropriate Antidiuretic Hormone: No Adrenal Disease: No Graves' Disease: No Blood Problems Anemia: Yes Leukemia: No Hemophilia: No Thalassemia: No Sickle Cell Disease: No Clotting Problems: No Psychologic Problems Schizophrenia: No Recreational Drug Use: No Bipolar Disorder: No Depression: No Anxiety: No Behavior Problems: No Self-Mutilation: No Attention Deficit Disorder: No Attention Deficit Hyperactivity Disorder: No Depression: No Post Traumatic Stress Disorder: No Eating Disorder: No Other Problems Hospitalization: Yes (stroke) Autoimmune Disease: No Down Syndrome: No Autism: No Developmental Delay: No Cosmetic Surgery: No Shingles: No Falls: Yes Blood Transfusions: No (na) Blood Transfusion Reaction: No Anesthesia Reactions: No (na) Organ Transplant: No Chemotherapy: No Radiation Therapy: No Hyperbaric Therapy: No MRSA: No VRSA: No Vancomycin-Resistant Enterococci: No Human Immunodeficiency Virus (HIV): No Chicken Pox: No Measles: No Mumps: No Rubella ([place] Measles): No Pertussis: No Klebsiella Pneumoniae Carbapenemase Producing Bacteria: No Clostridium Difficile: No Hepatitis A: No Hepatitis B: No Hepatitis C: No Communicable Disease: No Cancer: No Cervical Cancer: No Lung Cancer: No Ovarian Cancer: No Surgical History Angioplasty: No Appendectomy: No Bariatric Surgery: No Breast Surgery: No Cancer Surgery: No Carotid Endarterectomy: No Cholecystectomy: No Colectomy: No Colostomy: No Coronary Artery Bypass Graft: No Valve Replacement: No Herniorrhaphy: No Total Hip Replacement: No Total Knee Replacement: No Hysterectomy: No Pacemaker: Yes Sinus Surgery: No Splenectomy: No TAHBSO-Total Abdominal Hysterectomy: No Thyroidectomy: No Ureter Stent: No Additional Surgical History: HEART STENTS PLACED 01/21/24, COLONOSCOPY 01/07/24 Subjective Visit Visit for: follow up visit and knee Immunization / Flu Flu Vaccine in the Last 12 Months: No Flu Vaccine Exclusion Criteria: Refused by Patient and No Exclusion Criteria History of Present Illness Chief complaint: REQUEST LEFT SX Patient is a pleasant 69-year-old female with a left total knee replacement done by Dr. George. She was found to have an undersurface patella and significant patellar arthritis. We discussed nonoperative and operative options. At this point tachycardia conservative treatment. All her pain is with stairs and in the anterior aspect of her knee. She recently had a stent placed. This was done 10 months ago Personal History BMI Counceling provided: Yes Pain Pain level (0-10): 7 Pain location: anterior Pain quality: sharp, dull and aching Pain timing: increases with activity and stairs Associated signs & symptoms: stiffness Ambulatory data Ambulatory device: cane Treatments Improvement with previous injections: No Improvement with PT: No Improvement with NSAIDS: no Review of Systems Review of Systems: All systems negative unless otherwise noted in HPI.
[2024-11-11 09:13] VITALS: BP 106/65; PULSE 65; RESP 16; TEMP 36.1; O2SAT 92; BMI 34.4
== END 2024-11-11 09:36 | disposition home or self-care (01) ==
LOC: HODSRG 09:02
PROVIDERS: PCP Family Medicine; Referring Provider Family Medicine; Supervising Provider Orthopaedic Surgery Adult Reconstructive Orthopaedic Surgery; Visit Provider Orthopaedic Surgery Adult Reconstructive Orthopaedic Surgery
DX: Z96.651 Presence of right artificial knee joint (principal); M25.561 Pain in right knee; M25.562 Pain in left knee; M17.9 Osteoarthritis of knee, unspecified; I10 Essential (primary) hypertension; E78.00 Pure hypercholesterolemia, unspecified; I25.10 Atherosclerotic heart disease of native coronary artery without angina pectoris; Z86.73 Personal history of transient ischemic attack (TIA), and cerebral infarction without residual deficits; E11.9 Type 2 diabetes mellitus without complications
CPT/HCPCS: 99213; G0463

== ENCOUNTER 2024-12-02 10:30 | Outpatient (AMB) | payer MEDICARE, SELFPAY ==
--- NOTE | 2024-12-02 10:40 | PD.ORTHCLVIS ---
Vital signs 12/02/24 10:41 Height 1.7 m Height Method Measured Weight 100.244 kg Weight Measurement Method Standing Scale BMI 34.7 BP 146/73 H Blood Pressure Source Automatic Cuff Blood Pressure Location Left Upper Arm Position Sitting Respiration 20 Pulse 71 Pulse Source Monitor Temp 97.9 F Temp Source Temporal Artery Scan Pulse Oximetry (%) 93 L Oxygen Delivery Method Room Air Med/Allergies Allergies & Medications Allergies lactase (From [employer]) Allergy (Intermediate, Verified 12/02/24 10:43) Diarrhea Medication Reconciliation atorvastatin 40 mg tablet 20 tab PO QDAY 11/14/17 [History Confirmed 12/02/24] levothyroxine 100 mcg capsule 100 mcg PO QDAY 11/14/17 [History Confirmed 12/02/24] lisinopril 20 mg tablet 30 mg PO QDAY 11/14/17 [History Confirmed 12/02/24] sitagliptin phosphate 50 mg-metformin 1,000 mg tablet (Janumet) 1 tab PO BID 11/14/17 [History Confirmed 12/02/24] amlodipine 5 mg tablet 5 mg PO QDAY #30 tabs 08/06/20 [Rx Confirmed 12/02/24] clopidogrel 75 mg tablet (Plavix) 75 mg PO QDAY #30 tabs 08/06/20 [Rx Confirmed 12/02/24] empagliflozin 25 mg tablet (Jardiance) 25 mg PO QAM 08/06/20 [History Confirmed 12/02/24] metoprolol succinate 25 mg capsule sprinkle, ext. release 24 hr 25 mg PO QDAY 07/04/22 [History Confirmed 12/02/24] loperamide 2 mg tablet 2 mg PO PRN PRN Diarrhea 01/21/24 [History Confirmed 12/02/24] trazodone 50 mg tablet 50 mg PO HS 01/21/24 [History Confirmed 12/02/24] aspirin 81 mg tablet,delayed release 81 mg PO BID #60 tabs 11/17/24 [Rx Confirmed 12/02/24] doxycycline hyclate 100 mg tablet 100 mg PO BID #14 tabs 11/17/24 [Rx Confirmed 12/02/24] oxycodone 5 mg tablet 5 mg PO Q6H PRN pain #28 tabs 11/17/24 [Rx Confirmed 12/02/24] sennosides 8.6 mg-docusate sodium 50 mg tablet (Senna-S) 1 tab-cap PO QDAY #30 tabs 11/17/24 [Rx Confirmed 12/02/24] acetaminophen 500 mg tablet (Acetaminophen Extra Strength) 1,000 mg (2 x 500 mg) PO Q6H PRN pain #90 tabs 12/02/24 [Rx] gabapentin 300 mg capsule 300 mg PO .qhs #30 caps 12/02/24 [Rx] oxycodone 5 mg tablet 5 mg PO Q6H PRN pain #28 tabs 12/02/24 [Rx] Exam Exam Patient is in no acute distress and is cooperative with the examination today. Patient has a normal mood and affect. Breathing is nonlabored. In no respiratory distress. Bilateral extremities were evaluated and demonstrates sensation intact to light touch. Palpable pedal pulses are present. No significant edema is present. Left knee incision is clean dry intact Assessment and Plan Problem List (1) History of total bilateral knee replacement: Status: Acute Plan: Patient is a pleasant 68-year-old female who is status post right total knee replacement. she is now status post left patellar resurfacing and is doing well. We will see her back for routine follow-up in 4 weeks. I will get new x-rays at that time. (2) Bilateral knee pain: Status: Acute Advanced Care Planning Discussion Advance care planning discussed with:: patient Office Procedures GNS Level of Care Nursing/Assessment Patient Status: Established Patient Nursing Assessment/Reassesment: Medication Reconciliation, Orthostatic Vitals, Update PMH in EMR and Vital Signs Coordination of Care: Complex Care and Chronic Disease 1-5, Education Complex Pt/Fam, Consent,records obtained, informed consent, Results/Orders obtained and Staff clarify orders Established Patient Charge Established Patient Point Assignment: 105 Established Patient Point Charge: EP Level 3 (80-115) MA Intake Visit Data Collection New Patient or Established: Established Patient (seen at [facility] within 3 years) Reason for Visit:: 2 WEEK POST OP PATELLAR ARTHROPLASTY Seen by Clinical Staff ONLY (RN/MA): No Speech Communication Professor Required: No Primary Care Provider: DR DARNELL PCP or OBGYN visit in last 3 months: Yes Hx Now: No Do You Feel Safe at Home: Yes Authorities Contacted: N/A Questionairres Past Medical History Past Medical History Have you ever been diagnosed with any of the following: Neurological Problems Cerebrovascular Accident (CVA): Yes Transient Ischemic Attacks (TIA): No Dementia: No Alzheimer's Disease: No Parkinson's Disease: No Brain Tumor: No Meningitis: No Seizures: No Epilepsy: No Multiple Sclerosis: No Cerebral Palsy: No Amyotrophic Lateral Sclerosis (ALS/Samara Gehrig's): No Guillain-[place] Syndrome: No Spina Bifida: No Paralysis: No Peripheral Neuropathy: No Colon's Palsy: No Subdural Hematoma: No Migraine: No Head Trauma: No Spinal Cord Injury: No Traumatic Brain Injury: No Cardiology Problems Myocardial Infarction: No Cardiac Arrhythmia: No Atrial Fibrillation: No Angina: Yes Heart Murmur: No Coronary Artery Disease: Yes Atherosclerotic Heart Disease: No Peripheral Vascular Disease: No Hypercholesterolemia: Yes Aneurysm: No Congestive Heart Failure: No Congenital Heart Disease: No Valvular Heart Disease: No Rheumatic Fever: No Cardiomyopathy: No Edema: No Pericarditis: No Cellulitis: No Deep Vein Thrombosis: No Hypertension: Yes Hypotension: No Varicose Veins: No Respiratory Problems Chronic Obstructive Pulmonary Disease (COPD): No Asthma: No Bronchitis: No Emphysema: No Pneumonia: No Pulmonary Fibrosis: No Tuberculosis: No Pulmonary Embolism: No Pulmonary Edema: No Sleep Apnea: No CPAP Dependent: No Respiratory Aspiration: No Dyspnea: No Orthopnea: No Hx Cough: No Cough: No Wheezing: No Chest Deformities: No Smoking: No Smoking Cessation Counseling: No Smoking Exposure: No Tobacco Use: No Clubbing: No Exposure to Respiratory Irritants: No Intubation: No Stomache/Intestinal Problems Liver Cancer: No Hepatitis: No Cirrhosis: No Pancreatic Cancer: No Pancreatitis: No Celiac Disease: No Gall Bladder Disease: No Gastrointestinal Bleed: No Esophageal Varices: No Caceres's Esophagus: No Colitis: No Ulcerative Colitis: No Diverticulitis: No Diverticulosis: No Ulcer: No Colorectal Cancer: No Irritable Bowel: Yes Crohn's Disease: No Obstructive Bowel: No Hiatal Hernia: No Hemorrhoids: No Gastroesophageal Reflux Disease: No Polyps: No Obesity: No Genital/Urinary Problems Chronic Kidney Disease: No Renal Disease: No Kidney Stones: No Polycystic Kidney Disease: No Neurogenic Bladder: No Inguinal Hernia: No Dialysis: No Reproductive Problems Breast Cancer: No Endometriosis: No Fibroids: No Genital Herpes: No Gonorrhea: No Pelvic Inflammatory Disease: No Polycystic Ovarian Syndrome: No Previous Pregnancies: Yes (x3) Syphilis: No Uterine Prolapse: No Musculoskeletal Problems Muscular Dystrophy: No Myasthenia Gravis: No Marfan's Syndrome: No Bone Cancer: No Arthritis: Yes (general) Rheumatoid Arthritis: No Osteoporosis: No Degenerative Disk Disease: No Gout: No Scoliosis: No Carpal Tunnel Syndrome: No Fibromyalgia: No Fractures: No Degenerative Joint Disease: No Osteomyelitis: No Poliovirus: No Head,Eye,Nose,Throat Problems Cataracts: Yes (BILATERAL) Glaucoma: No Blind: No Retinal Detachment: No Macular Degeneration: No Chronic Ear Infections: No Deafness: No Eye Prosthesis: No Endocrine Problems Diabetes Mellitus Type 1: No Diabetes Mellitus Type 2: Yes Hypoglycemia: No Jace's Syndrome: No [place]'s Disease: No Hyperthyroidism: Yes Hypothyroidism: No Thyroid Cancer: No Parathyroid Disease: No Pituitary Disease: No Systemic Lupus Erythematosus: No Syndrome of Inappropriate Antidiuretic Hormone: No Adrenal Disease: No Graves' Disease: No Blood Problems Anemia: Yes Leukemia: No Hemophilia: No Thalassemia: No Sickle Cell Disease: No Clotting Problems: No Psychologic Problems Schizophrenia: No Recreational Drug Use: No Bipolar Disorder: No Depression: No Anxiety: No Behavior Problems: No Self-Mutilation: No Attention Deficit Disorder: No Attention Deficit Hyperactivity Disorder: No Depression: No Post Traumatic Stress Disorder: No Eating Disorder: No Other Problems Hospitalization: Yes (stroke) Autoimmune Disease: No Down Syndrome: No Autism: No Developmental Delay: No Cosmetic Surgery: No Shingles: No Falls: Yes Blood Transfusions: No (na) Blood Transfusion Reaction: No Anesthesia Reactions: No (na) Organ Transplant: No Chemotherapy: No Radiation Therapy: No Hyperbaric Therapy: No MRSA: No VRSA: No Vancomycin-Resistant Enterococci: No Human Immunodeficiency Virus (HIV): No Chicken Pox: No Measles: No Mumps: No Rubella ([place] Measles): No Pertussis: No Klebsiella Pneumoniae Carbapenemase Producing Bacteria: No Clostridium Difficile: No Hepatitis A: No Hepatitis B: No Hepatitis C: No Communicable Disease: No Cancer: No Cervical Cancer: No Lung Cancer: No Ovarian Cancer: No Surgical History Angioplasty: No Appendectomy: No Bariatric Surgery: No Breast Surgery: No Cancer Surgery: No Carotid Endarterectomy: No Cholecystectomy: No Colectomy: No Colostomy: No Coronary Artery Bypass Graft: No Valve Replacement: No Herniorrhaphy: No Total Hip Replacement: No Total Knee Replacement: No Hysterectomy: No Pacemaker: Yes Sinus Surgery: No Splenectomy: No TAHBSO-Total Abdominal Hysterectomy: No Thyroidectomy: No Ureter Stent: No Additional Surgical History: HEART STENTS PLACED 01/21/24, COLONOSCOPY 01/07/24 Subjective Visit Visit for: follow up visit, post op #1 and knee Immunization / Flu Flu Vaccine in the Last 12 Months: No Flu Vaccine Exclusion Criteria: Refused by Patient and No Exclusion Criteria History of Present Illness Chief complaint: 2 WEEK POST OP PATELLAR ARTHROPLASTY Date of 1st surgery (if applicable): 11/17/2024 Patient is a pleasant 69-year-old female with a left total knee replacement done by Dr. George. She is 2 weeks s/p patelloplasty and resurfacing. She is doing well Personal History Red flag PMH: none BMI Counceling provided: Yes Pain Pain level (0-10): 4 Pain location: anterior Pain quality: sharp, dull and aching Pain timing: increases with activity and stairs Associated signs & symptoms: stiffness Ambulatory data Ambulatory device: walker Treatments Improvement with previous injections: No Improvement with PT: No Improvement with NSAIDS: no Review of Systems Review of Systems: All systems negative unless otherwise noted in HPI.
[2024-12-02 10:41] VITALS: BP 146/73; PULSE 71; RESP 20; TEMP 36.6; O2SAT 93; BMI 34.7
== END 2024-12-02 10:49 | disposition home or self-care (01) ==
LOC: HODSRG 10:30
PROVIDERS: PCP Family Medicine; Referring Provider Family Medicine; Supervising Provider Orthopaedic Surgery Adult Reconstructive Orthopaedic Surgery; Visit Provider Orthopaedic Surgery Adult Reconstructive Orthopaedic Surgery
DX: Z96.653 Presence of artificial knee joint, bilateral (principal); M25.562 Pain in left knee; M25.561 Pain in right knee; I10 Essential (primary) hypertension; I25.10 Atherosclerotic heart disease of native coronary artery without angina pectoris; Z86.73 Personal history of transient ischemic attack (TIA), and cerebral infarction without residual deficits; E78.00 Pure hypercholesterolemia, unspecified; E11.9 Type 2 diabetes mellitus without complications; Z95.0 Presence of cardiac pacemaker
CPT/HCPCS: 99213; G0463

== ENCOUNTER 2025-01-13 09:25 | Outpatient (AMB) | payer MEDICARE, SELFPAY ==
[2025-01-13 09:57] VITALS: BP 150/74; PULSE 62; RESP 18; TEMP 36.8; O2SAT 95; BMI 33.9
--- NOTE | 2025-01-13 09:57 | ORTHONT_ITS ---
Vital signs 01/13/25 09:57 Height 1.7 m Height Method Measured Weight 98.061 kg Weight Measurement Method Standing Scale BMI 33.9 BP 150/74 H Blood Pressure Source Automatic Cuff Blood Pressure Location Left Upper Arm Position Sitting Respiration 18 Pulse 62 Pulse Source Monitor Temp 98.2 F Temp Source Temporal Artery Scan Pulse Oximetry (%) 95 Oxygen Delivery Method Room Air Med/Allergies Allergies & Medications Allergies lactase (From [employer]) Allergy (Intermediate, Verified 01/13/25 09:58) Diarrhea Medication Reconciliation atorvastatin 40 mg tablet 20 tab PO QDAY 11/14/17 [History Confirmed 01/13/25] levothyroxine 100 mcg capsule 100 mcg PO QDAY 11/14/17 [History Confirmed 01/13/25] lisinopril 20 mg tablet 30 mg PO QDAY 11/14/17 [History Confirmed 01/13/25] sitagliptin phosphate 50 mg-metformin 1,000 mg tablet (Janumet) 1 tab PO BID 11/14/17 [History Confirmed 01/13/25] amlodipine 5 mg tablet 5 mg PO QDAY #30 tabs 08/06/20 [Rx Confirmed 01/13/25] clopidogrel 75 mg tablet (Plavix) 75 mg PO QDAY #30 tabs 08/06/20 [Rx Confirmed 01/13/25] empagliflozin 25 mg tablet (Jardiance) 25 mg PO QAM 08/06/20 [History Confirmed 01/13/25] metoprolol succinate 25 mg capsule sprinkle, ext. release 24 hr 25 mg PO QDAY 07/04/22 [History Confirmed 01/13/25] loperamide 2 mg tablet 2 mg PO PRN PRN Diarrhea 01/21/24 [History Confirmed 01/13/25] trazodone 50 mg tablet 50 mg PO HS 01/21/24 [History Confirmed 01/13/25] aspirin 81 mg tablet,delayed release 81 mg PO BID #60 tabs 11/17/24 [Rx Confirmed 01/13/25] doxycycline hyclate 100 mg tablet 100 mg PO BID #14 tabs 11/17/24 [Rx Confirmed 01/13/25] oxycodone 5 mg tablet 5 mg PO Q6H PRN pain #28 tabs 11/17/24 [Rx Confirmed 01/13/25] sennosides 8.6 mg-docusate sodium 50 mg tablet (Senna-S) 1 tab-cap PO QDAY #30 tabs 11/17/24 [Rx Confirmed 01/13/25] gabapentin 300 mg capsule 300 mg PO .qhs #30 caps 12/02/24 [Rx Confirmed 01/13/25] acetaminophen 500 mg tablet (Acetaminophen Extra Strength) 1,000 mg (2 x 500 mg) PO Q6H PRN pain #90 tabs 12/16/24 [Rx Confirmed 01/13/25] oxycodone 5 mg tablet 5 mg PO Q6H PRN pain #28 tabs 12/16/24 [Rx Confirmed 01/13/25] oxycodone 5 mg tablet 5 mg PO Q6H PRN pain #28 tabs 12/23/24 [Rx Confirmed 01/13/25] Exam Exam Patient is in no acute distress and is cooperative with the examination today. Patient has a normal mood and affect. Breathing is nonlabored. In no respiratory distress. Bilateral extremities were evaluated and demonstrates sensation intact to light touch. Palpable pedal pulses are present. No significant edema is present. Left knee incision is clean dry intact. Rom is 0-105 degrees Assessment and Plan Problem List (1) History of total bilateral knee replacement: Status: Acute Plan: Patient is a pleasant 68-year-old female who is status post right total knee replacement. she is now status post left patellar resurfacing and is doing well. We will see her back for routine follow-up in 8 weeks. I will get new x-rays at that time. (2) Bilateral knee pain: Status: Acute Advanced Care Planning Discussion Advance care planning discussed with:: patient Office Procedures GNS Level of Care Nursing/Assessment Patient Status: Established Patient Nursing Assessment/Reassesment: Medication Reconciliation, Update PMH in EMR and Vital Signs Coordination of Care: Complex Care and Chronic Disease 1-5, Education Complex Pt/Fam, Consent,records obtained, informed consent, Results/Orders obtained and Staff clarify orders Established Patient Charge Established Patient Point Assignment: 95 Established Patient Point Charge: EP Level 3 (80-115) MA Intake Visit Data Collection New Patient or Established: Established Patient (seen at [facility] within 3 years) Reason for Visit:: 4 WEEK POST OP PATELLAR ARTHROPLASTY Seen by Clinical Staff ONLY (RN/MA): No Operator Helper Required: No Primary Care Provider: DR DARNELL PCP or OBGYN visit in last 3 months: Yes Hx Now: No Do You Feel Safe at Home: Yes Authorities Contacted: N/A Questionairres Past Medical History Past Medical History Have you ever been diagnosed with any of the following: Neurological Problems Cerebrovascular Accident (CVA): Yes Transient Ischemic Attacks (TIA): No Dementia: No Alzheimer's Disease: No Parkinson's Disease: No Brain Tumor: No Meningitis: No Seizures: No Epilepsy: No Multiple Sclerosis: No Cerebral Palsy: No Amyotrophic Lateral Sclerosis (ALS/Samara Gehrig's): No Guillain-[place] Syndrome: No Spina Bifida: No Paralysis: No Peripheral Neuropathy: No Colon's Palsy: No Subdural Hematoma: No Migraine: No Head Trauma: No Spinal Cord Injury: No Traumatic Brain Injury: No Cardiology Problems Myocardial Infarction: No Cardiac Arrhythmia: No Atrial Fibrillation: No Angina: Yes Heart Murmur: No Coronary Artery Disease: Yes Atherosclerotic Heart Disease: No Peripheral Vascular Disease: No Hypercholesterolemia: Yes Aneurysm: No Congestive Heart Failure: No Congenital Heart Disease: No Valvular Heart Disease: No Rheumatic Fever: No Cardiomyopathy: No Edema: No Pericarditis: No Cellulitis: No Deep Vein Thrombosis: No Hypertension: Yes Hypotension: No Varicose Veins: No Respiratory Problems Chronic Obstructive Pulmonary Disease (COPD): No Asthma: No Bronchitis: No Emphysema: No Pneumonia: No Pulmonary Fibrosis: No Tuberculosis: No Pulmonary Embolism: No Pulmonary Edema: No Sleep Apnea: No CPAP Dependent: No Respiratory Aspiration: No Dyspnea: No Orthopnea: No Hx Cough: No Cough: No Wheezing: No Chest Deformities: No Smoking: No Smoking Cessation Counseling: No Smoking Exposure: No Tobacco Use: No Clubbing: No Exposure to Respiratory Irritants: No Intubation: No Stomache/Intestinal Problems Liver Cancer: No Hepatitis: No Cirrhosis: No Pancreatic Cancer: No Pancreatitis: No Celiac Disease: No Gall Bladder Disease: No Gastrointestinal Bleed: No Esophageal Varices: No Caceres's Esophagus: No Colitis: No Ulcerative Colitis: No Diverticulitis: No Diverticulosis: No Ulcer: No Colorectal Cancer: No Irritable Bowel: Yes Crohn's Disease: No Obstructive Bowel: No Hiatal Hernia: No Hemorrhoids: No Gastroesophageal Reflux Disease: No Polyps: No Obesity: No Genital/Urinary Problems Chronic Kidney Disease: No Renal Disease: No Kidney Stones: No Polycystic Kidney Disease: No Neurogenic Bladder: No Inguinal Hernia: No Dialysis: No Reproductive Problems Breast Cancer: No Endometriosis: No Fibroids: No Genital Herpes: No Gonorrhea: No Pelvic Inflammatory Disease: No Polycystic Ovarian Syndrome: No Previous Pregnancies: Yes (x3) Syphilis: No Uterine Prolapse: No Musculoskeletal Problems Muscular Dystrophy: No Myasthenia Gravis: No Marfan's Syndrome: No Bone Cancer: No Arthritis: Yes (general) Rheumatoid Arthritis: No Osteoporosis: No Degenerative Disk Disease: No Gout: No Scoliosis: No Carpal Tunnel Syndrome: No Fibromyalgia: No Fractures: No Degenerative Joint Disease: No Osteomyelitis: No Poliovirus: No Head,Eye,Nose,Throat Problems Cataracts: Yes (BILATERAL) Glaucoma: No Blind: No Retinal Detachment: No Macular Degeneration: No Chronic Ear Infections: No Deafness: No Eye Prosthesis: No Endocrine Problems Diabetes Mellitus Type 1: No Diabetes Mellitus Type 2: Yes Hypoglycemia: No [place]'s Syndrome: No Chris's Disease: No Hyperthyroidism: Yes Hypothyroidism: No Thyroid Cancer: No Parathyroid Disease: No Pituitary Disease: No Systemic Lupus Erythematosus: No Syndrome of Inappropriate Antidiuretic Hormone: No Adrenal Disease: No Graves' Disease: No Blood Problems Anemia: Yes Leukemia: No Hemophilia: No Thalassemia: No Sickle Cell Disease: No Clotting Problems: No Psychologic Problems Schizophrenia: No Recreational Drug Use: No Bipolar Disorder: No Depression: No Anxiety: No Behavior Problems: No Self-Mutilation: No Attention Deficit Disorder: No Attention Deficit Hyperactivity Disorder: No Depression: No Post Traumatic Stress Disorder: No Eating Disorder: No Other Problems Hospitalization: Yes (stroke) Autoimmune Disease: No Down Syndrome: No Autism: No Developmental Delay: No Cosmetic Surgery: No Shingles: No Falls: Yes Blood Transfusions: No (na) Blood Transfusion Reaction: No Anesthesia Reactions: No (na) Organ Transplant: No Chemotherapy: No Radiation Therapy: No Hyperbaric Therapy: No MRSA: No VRSA: No Vancomycin-Resistant Enterococci: No Human Immunodeficiency Virus (HIV): No Chicken Pox: No Measles: No Mumps: No Rubella ([place] Measles): No Pertussis: No Klebsiella Pneumoniae Carbapenemase Producing Bacteria: No Clostridium Difficile: No Hepatitis A: No Hepatitis B: No Hepatitis C: No Communicable Disease: No Cancer: No Cervical Cancer: No Lung Cancer: No Ovarian Cancer: No Surgical History Angioplasty: No Appendectomy: No Bariatric Surgery: No Breast Surgery: No Cancer Surgery: No Carotid Endarterectomy: No Cholecystectomy: No Colectomy: No Colostomy: No Coronary Artery Bypass Graft: No Valve Replacement: No Herniorrhaphy: No Total Hip Replacement: No Total Knee Replacement: No Hysterectomy: No Pacemaker: Yes Sinus Surgery: No Splenectomy: No TAHBSO-Total Abdominal Hysterectomy: No Thyroidectomy: No Ureter Stent: No Additional Surgical History: HEART STENTS PLACED 01/21/24, COLONOSCOPY 01/07/24 Subjective Visit Visit for: follow up visit and knee Immunization / Flu Flu Vaccine in the Last 12 Months: No Flu Vaccine Exclusion Criteria: Refused by Patient and No Exclusion Criteria History of Present Illness Chief complaint: 4 WEEK POST OP PATELLAR ARTHROPLASTY Date of 1st surgery (if applicable): 11/17/2024 Patient is a pleasant 69-year-old female with a left total knee replacement done by Dr. George. She is 7 weeks s/p patelloplasty and resurfacing. She is doing well Personal History Red flag PMH: none BMI Counceling provided: Yes Pain Pain level (0-10): 4 Pain location: anterior Pain quality: sharp, dull and aching Pain timing: increases with activity and stairs Associated signs & symptoms: stiffness Ambulatory data Ambulatory device: cane Treatments Improvement with previous injections: No Improvement with PT: No Improvement with NSAIDS: no Review of Systems Review of Systems: All systems negative unless otherwise noted in HPI.
== END 2025-01-13 10:18 | disposition home or self-care (01) ==
LOC: HODSRG 09:25
PROVIDERS: PCP Family Medicine; Referring Provider Family Medicine; Supervising Provider Orthopaedic Surgery Adult Reconstructive Orthopaedic Surgery; Visit Provider Orthopaedic Surgery Adult Reconstructive Orthopaedic Surgery
DX: Z96.651 Presence of right artificial knee joint (principal); M25.562 Pain in left knee; M25.561 Pain in right knee
CPT/HCPCS: 99213; G0463